=== PATIENT | female | born 1950 | race Caucasian/White ===

== ENCOUNTER 2017-07-05 11:43 | Observation (INO) | payer MEDICARE, OTHER ==
[~2017-07-05] VITALS: Ht 149.9 cm; Wt 70.3 kg
[2017-07-05] MEDS ORDERED: ONDANSETRON HCL 4 MG/2 ML VIAL IV ONE (12:00)
[2017-07-05] MEDS ORDERED: ROCURONIUM INJ 50 MG/5 ML SYRINGE IV PUSH ONE (12:00)
[2017-07-05] MEDS ORDERED: GLYCOPYRROLATE 1 MG/5 ML SYRINGE IV PUSH ONE (12:00)
[2017-07-05] MEDS ORDERED: PROPOFOL 200 MG/20 ML AMP IV ONE (12:00)
[2017-07-05] MEDS ORDERED: ePHEDrine/NS 25 MG/5 ML SYR IV ONE (12:00)
[2017-07-05] MEDS ORDERED: DEXAMETHASONE SOD PHOS 4 MG/ML VIAL IV ONE (12:00)
[2017-07-05] MEDS ORDERED: NEOSTIGMINE 5 MG/5 ML SYRINGE IV PUSH ONE (12:00)
[2017-07-05] MEDS ORDERED: LIDOCAINE HCL 1% PF 5 ML SYRINGE OTHER ONE (12:00)
[2017-07-05] MEDS ORDERED: METOPROLOL TARTRATE 25 MG TAB PO PRN (13:15)
[2017-07-05] MEDS ORDERED: POVIDONE IODINE 5% (ANTISEPSIS KIT) 4 APPLICATIONS EACH NARE PRN (13:15)
[2017-07-05] MEDS ORDERED: SODIUM CHLORID 0.9% 500 ML IV PRN (13:15)
[2017-07-05] MEDS ORDERED: INSULIN HUMAN REGULAR 1,000 UNITS/10 ML VIAL SQ PRN (13:15)
[2017-07-05] MEDS ORDERED: METRONIDAZOLE 500 MG/100 ML ISONTONIC SOLN IV PRN (13:15)
[2017-07-05] MEDS ORDERED: CHLORHEXIDINE GLUCONATE 2 % 1 PACK (2 CLOTHS) TOPICAL PRN (13:15)
[2017-07-05] MEDS ORDERED: LACTATED RINGER'S 1000 ML IV PRN (13:15)
[2017-07-05] MEDS ORDERED: ceFAZolin 2 GM PREMIX 50 ML IV SCH (13:15)
[2017-07-05] MEDS ORDERED: BUPIVACAINE/EPINEPHRINE 0.25% PF 30 ML VIAL ONE (14:27)
[2017-07-05] MEDS ORDERED: DO NOT ADM ANY ANTICOAGULANT DRUGS PRN (16:23)
--- NOTE | 2017-07-05 16:25 | PD.OP ---
Operative Report Date of Surgery: Jul 05, 2017 Preoperative Diagnosis: chronic calculous cholecystitis Postoperative Diagnosis: same Procedure: lap bere Anesthesia: general Surgeon: Jose Gomes Flake Drier(s): Kenny Operation and Findings: Gb with chronic inflammatory changes and a stone in the Gb neck. EBL less than 3 ml. Jose Gomes MD Jul 05, 2017 16:25
[2017-07-05] MEDS ORDERED: ONDANSETRON HCL 4 MG/2 ML VIAL IV PUSH PRN ×2 (16:45→18:30)
[2017-07-05] MEDS ORDERED: ACETAMINOPHEN 1000 MG/100 ML 100 ML IV ONE (16:45)
[2017-07-05] MEDS ORDERED: ACETAMINOPHEN/HYDROcodone 325 MG/5 MG TAB PO PRN ×2 (16:45→18:30)
[2017-07-05] MEDS ORDERED: *MEPERIDINE 25 MG INJ VIAL PERIprocedural Use ONLY ONE (17:03)
[2017-07-05] MEDS ORDERED: *HYDROmorphone PF 1 MG VIAL PERIprocedural Use ONLY ONE (17:20)
[2017-07-05] MEDS: ACETAMINOPHEN/HYDROcodone 325 MG/5 MG TAB PO PRN ×2 (17:24→22:07)
[2017-07-05] MEDS ORDERED: NORC5TAB PO (17:34)
[2017-07-05] MEDS: LACTATED RINGER'S 1000 ML INJ 1,000 ML IV SCH (18:17)
[2017-07-05] MEDS ORDERED: SODIUM CHLORIDE 0.9% FLUSH 10 ML FLUSH IV FLUSH PRN (18:30)
[2017-07-05] MEDS ORDERED: HYDROmorphone HCL PF 1 MG/ML VIAL IV PUSH PRN (18:30)
[2017-07-05] MEDS ORDERED: Post-op Orders (for Pharmacy) XX ONE (18:30)
[2017-07-05] MEDS: KETOROLAC TROMETHAMINE 30 MG/ML (IVP) VIAL IVP SCH (19:30)
[2017-07-05 20:40] VITALS: BP 163/74; PULSE 76; RESP 18; TEMP 97; O2SAT 95
[2017-07-05] MEDS: SODIUM CHLORIDE 0.9% FLUSH 10 ML FLUSH IV FLUSH SCH (22:26)
[2017-07-06 00:28] VITALS: BP 137/70; PULSE 72; RESP 18; TEMP 97.6; O2SAT 96
[2017-07-06] MEDS: KETOROLAC TROMETHAMINE 30 MG/ML (IVP) VIAL IVP SCH ×2 (00:28→06:03)
[2017-07-06] MEDS: ACETAMINOPHEN/HYDROcodone 325 MG/5 MG TAB PO PRN ×2 (03:26→08:02)
[2017-07-06 04:43] VITALS: BP 126/73; PULSE 73; RESP 18; TEMP 97.6; O2SAT 96
[2017-07-06] MEDS: LACTATED RINGER'S 1000 ML INJ 1,000 ML IV SCH (06:20)
[2017-07-06 08:00] VITALS: BP 127/62; PULSE 70; RESP 16; TEMP 97; O2SAT 95
--- NOTE | 2017-07-06 08:37 | HHI.PR ---
Subjective Subjective Notes Better this morning after walking, belching some. Tolerating po well, no nausea. Thinks she was just having severe gas pains postop. Wants to go home. Objective Vitals/I&O Vital Signs Date Time Temp Pulse Resp B/P (MAP) Pulse Ox O2 Delivery O2 Flow Rate FiO2 07/06/17 04:43 97.6 73 18 126/73 (90) 96 07/05/17 17:40 Room Air 07/05/17 16:45 2 Cardiovascular: Regular Lungs: Clear Abdomen: Non-distended, Non-tender, Other (3 trocar sites healing well. No erythema, no drainage, steri strips intact, minimal tenderness.) Extremities: No edema, Perfused A/P Assessment and Plan POD 1 s/p lap bere, chronic calculous cholecystitis. Gas pains resolved. DC home . Instructions verbally provided, sheet on chart. Jose Gomes MD Jul 06, 2017 08:37
--- NOTE | 2017-07-06 08:41 | HHI.DS ---
Discharge Summary Admission Date Jul 05, 2017 at 18:20 Discharge Date: Jul 06, 2017 Admitting Diagnosis chronic calculous cholcystitis. Postop gas pains Procedures LAP BERE Brief History 67 year old with chronic calculous cholecystitis for outpatient lap bere transferred to the main due to oxygen leak at [place]. Significant Findings GB to pathology, clinically inflammed with stone at GB neck. PE at Discharge Incisions healing well. Hospital Course Admitted postop due to severe gas pains, better after walking and belching, wants to go home. Pt Condition on Discharge: Good Discharge Disposition: Discharge Home Discharge Instructions DIET: Follow Instructions for: As Tolerated, No Restrictions Activities you can perform: Shower Only-No Bath Activities to Avoid: Driving for 24 hrs, Strenuous Activity Jose Gomes MD Jul 06, 2017 08:41
[2017-07-06] MEDS: SODIUM CHLORIDE 0.9% FLUSH 10 ML FLUSH IV FLUSH SCH (09:00)
--- NOTE | 2017-07-06 09:07 | MP ---
cc: NINA LOPEZ M.D. DATE OF SURGERY: 07/05/2017 PREOPERATIVE DIAGNOSIS Chronic calculous cholecystitis. POSTOPERATIVE DIAGNOSES Chronic calculous cholecystitis. PROCEDURE Laparoscopic cholecystectomy. SURGEON Dr. Nina Lopez. ANESTHESIA General. INDICATIONS This is a pleasant 67-year-old woman who has had chronic recurrent episodes of upper abdominal pain associated with nausea and vomiting. She has taken to the ER by her friend where they diagnosed her condition. She presented to my office for consideration for laparoscopic cholecystectomy. INTRAOPERATIVE FINDINGS Chronic inflammatory changes consistent with chronic calculous cholecystitis with a gallstone in the gallbladder neck. The gallbladder was removed and sent to pathology. ESTIMATED BLOOD LOSS Less than 3 mL. DESCRIPTION OF PROCEDURE IN DETAIL The patient was identified as Zoya Conley, taken to the operating room and placed in supine position. Sequential compression devices were placed on bilateral lower extremities. Following the induction of adequate general endotracheal anesthesia the patient's abdomen was prepped and draped in the usual sterile fashion with Betadine. A timeout procedure was performed. Following completion of the timeout procedure to everyone's satisfaction within the room, local anesthetic was placed in the supraumbilical position. A supraumbilical incision was carried out with a scalpel about 2 cm in length and dissection continued posteriorly to the level of the base of the umbilicus. This was retracted anteriorly using a Thao clamp and the supraumbilical fascia incised about 1.5 cm in length using a scalpel. Entry into the peritoneal cavity was facilitated with the surgeon's finger. The [employer] balloon Oleg trocar was placed in the peritoneal cavity, its balloon inflated with CO2 insufflation until the level of 15 mmHg ensued. The patient was placed in a reverse Trendelenburg position, turned to the left. Two upper abdominal 5 mm trocars were placed in the peritoneal cavity under direct laparoscopic view after incision of the skin with a scalpel. The gallbladder was immediately identified with inflammatory adhesions of the omentum to the gallbladder. These were taken down with the Harmonic scalpel. The gallbladder was removed from the gallbladder fossa in the dome-down technique using the Harmonic scalpel. The cystic arterial branch was divided with the Harmonic scalpel. The cystic duct was isolated from surrounding tissues, ligated proximally and distally with 0 PDS Endoloops and the cystic duct divided between the Endoloops using the Harmonic scalpel. The gallbladder was placed into an Endo retriever bag and removed through the supraumbilical fascial port incision site and passed off the field for pathologic evaluation. The right upper quadrant was examined. There was no bilious or bloody drainage. The cystic duct ligature remained intact. The cystic arterial stump was hemostatic. Remaining local anesthetic was placed in the subhepatic position. Trocars were removed under direct visualization. There was no evidence of bleeding from the trocar sites. The abdomen was desufflated through the supraumbilical port which was then removed. The supraumbilical fascial incision was closed with multiple interrupted [id number] Vicryl sutures. The port sites were irrigated with saline. The skin incisions were approximated with 4-0 Monocryl subcuticular sutures. Dressings were applied with Mastisol and half-inch brown Steri-Strips. The patient tolerated the procedure without apparent complication. Sponge, needle and instrument counts were correct at the end of the case. MD ROMY Vega/KT /4:21 PM /8:55 AM
--- NOTE | 2017-07-06 14:29 | EKG ---
Date Performed: 07/05/2017 Time Performed: 14:23:31 PTAGE: 67 years EKG: Sinus rhythm NORMAL ECG NO PREVIOUS TRACING DOCTOR: Cherrie Aguillon Interpretating Date/Time 07/06/2017 14:25:24
[2017-07-06] MEDS ORDERED: ENOXAPARIN SODIUM 30 MG/0.3 ML SYRINGE SQ SCH (15:00)
== END 2017-07-06 12:16 | disposition home or self-care (01) ==
LOC: ESDC 11:43 → HSDI 18:20 → N06B 20:02
PROVIDERS: ADMIT Surgery Trauma Surgery; ATTEND Surgery Trauma Surgery
DX: K80.10 Calculus of gallbladder with chronic cholecystitis without obstruction (principal); Z01.810 Encounter for preprocedural cardiovascular examination
CPT/HCPCS: 00790; 47562; 88304; 93005; G0378; J0131; J1100; J1170; J1885; J2175; J2405; J2710; J3010